=== PATIENT | male | born 1965 | race African-American/Black ===

== ENCOUNTER 2019-10-30 15:30 | Emergency (ER) | payer SELFPAY ==
[2019-10-30] MEDS ORDERED: NORMAL SALINE 1000 ML 1,000 ML IV ONE ×2 (16:12→18:20)
--- NOTE | 2019-10-30 16:14 | ER Document Report ---
ED Medical Screen (RME) - General Chief Complaint: High Blood Sugar Stated Complaint: ABNORMAL LAB - DR REFERRED Time Seen by Provider: 10/30/19 16:04 Mode of Arrival: Ambulatory Information source: Patient Notes: Patient is a 54-year-old male presenting to the emergency department from the urgent care with concerns for elevated blood glucose. Patient reports he is perfectly healthy, has no history of hypertension, diabetes and does not take any medications daily. Patient reports the urgent care told him his glucose was elevated and he had an A1c of 13. Patient reports excessive thirst and frequent urination lately. Denies any nausea, vomiting or diarrhea. Patient appears well, nontoxic is alert, oriented and interactive. I have greeted and performed a rapid initial assessment of this patient. A comprehensive ED assessment and evaluation of the patient, analysis of test results and completion of the medical decision making process will be conducted by additional ED providers. I have specifically instructed the patient or family members with the patient to immediately return to any nursing staff should anything change in the patient's condition or with their chief complaint. TRAVEL OUTSIDE OF THE [place] IN LAST 30 DAYS: No - Related Data Allergies/Adverse Reactions: pollen extracts Allergy (Verified 10/30/19 15:51) Past Medical History - Social History Frequency of alcohol use: None Drug Abuse: None Physical Exam - Vital signs Vitals: Temp Pulse Resp BP Pulse Ox 98.1 F 117 H 18 175/93 H 96 10/30/19 15:35 10/30/19 15:35 10/30/19 15:35 10/30/19 15:35 10/30/19 15:35 Course - Vital Signs Vital signs: Temp Pulse Resp BP Pulse Ox 98.1 F 117 H 18 175/93 H 96 10/30/19 15:35 10/30/19 15:35 10/30/19 15:35 10/30/19 15:35 10/30/19 15:35
--- NOTE | 2019-10-30 16:44 | RADIOLOGY REPORT (SQ) ---
EXAM DESCRIPTION: CHEST 2 VIEWS COMPLETED DATE/TIME: 10/30/2019 4:33 pm REASON FOR STUDY: eval for chf COMPARISON: None. EXAM PARAMETERS: NUMBER OF VIEWS: two views TECHNIQUE: Digital Frontal and Lateral radiographic views of the chest acquired. RADIATION DOSE: NA LIMITATIONS: none FINDINGS: LUNGS AND PLEURA: No opacities, masses or pneumothorax. No pleural effusion. MEDIASTINUM AND HILAR STRUCTURES: No masses or contour abnormalities. HEART AND VASCULAR STRUCTURES: Cardiac enlargement. No failure. BONES: No acute findings. HARDWARE: None in the chest. OTHER: No other significant finding. IMPRESSION: NO ACUTE RADIOGRAPHIC FINDING IN THE CHEST. TECHNICAL DOCUMENTATION: JOB ID: [id number] 2010 [employer]- All Rights Reserved Reading location - IP/workstation name: [email or web address]
[2019-10-30 17:10] LABS: ABSOLUTE BASOPHILS # (AUTO) 0.1 10^3/uL (0.0-0.2); ABSOLUTE EOSINOPHILS # (AUTO) 0.3 10^3/uL (0.0-0.6); ABSOLUTE LYMPHOCYTES (AUTO) 2.6 10^3/uL (0.5-4.7); ABSOLUTE MONOCYTES (AUTO) 0.7 10^3/uL (0.1-1.4); BASOPHILS % (AUTO) 0.6 % (0-2); EOSINOPHILS % (AUTO) 2.9 % (0-6); HEMATOCRIT 41.2 % (37.9-51.0); HEMOGLOBIN 14.3 g/dL (13.5-17.0); LYMPHOCYTES % (AUTO) 27.2 % (13-45); MEAN CORPUSCULAR HEMOGLOBIN 26.6 pg (27.0-33.4); MEAN CORPUSCULAR HGB CONC 34.7 g/dL (32.0-36.0); MEAN CORPUSCULAR VOLUME 77 fl (80-97); MONOCYTES % (AUTO) 6.8 % (3-13); PLATELET COUNT 224 10^3/uL (150-450); RED BLOOD COUNT 5.37 10^6/uL (4.35-5.55); RED CELL DISTRIBUTION WIDTH 16.1 % (11.5-14.0); SEGMENTED NEUTROPHILS % (AUTO) 62.5 % (42-78); TOTAL CELLS COUNTED % (AUTO) 100 %; WHITE BLOOD COUNT 9.6 10^3/uL (4.0-10.5)
[2019-10-30 17:27] LABS: ALBUMIN 3.3 g/dL (3.5-5.0); ALKALINE PHOSPHATASE 147 U/L (38-126); ANION GAP 11 (5-19); ASPARTATE AMINO TRANSFERASE 26 U/L (17-59); BILIRUBIN,DIRECT 0.3 mg/dL (0.0-0.4); BILIRUBIN,TOTAL 0.6 mg/dL (0.2-1.3); BLOOD UREA NITROGEN 18 mg/dL (7-20); CALCIUM 8.9 mg/dL (8.4-10.2); CARBON DIOXIDE 23 mmol/L (22-30); CHLORIDE 97 mmol/L (98-107); POTASSIUM 4.4 mmol/L (3.6-5.0); TOTAL PROTEIN 6.6 g/dL (6.3-8.2)
[2019-10-30 17:35] LABS: GLUCOSE 448 mg/dL (75-110)
[2019-10-30 18:37] LABS: APPEARANCE,URINE SLIGHTLY-CLOUDY; BILIRUBIN,URINE NEGATIVE (NEGATIVE); COLOR,URINE STRAW; GLUCOSE, URINE >=500 mg/dL (NEGATIVE); KETONES,URINE 20 mg/dL (NEGATIVE); LEUKOCYTE ESTERASE,URINE MODERATE (NEGATIVE); NITRITE,URINE NEGATIVE (NEGATIVE); PROTEIN,URINE NEGATIVE (NEGATIVE); URINE SPECIFIC GRAVITY 1.021; UROBILINOGEN,URINE NEGATIVE mg/dL (<2.0)
[2019-10-30] MEDS ORDERED: CEFTRIAXONE 1 GM/D5W RTU 1 GM/50 ML RTUPB IV ONE (18:52)
--- NOTE | 2019-10-30 19:42 | ER Document Report ---
ED Blood Sugar Problem - General Chief Complaint: High Blood Sugar Stated Complaint: ABNORMAL LAB - DR REFERRED Time Seen by Provider: 10/30/19 16:04 Mode of Arrival: Ambulatory Notes: HPI: Patient is a 54-year-old male with no real past medical history who states around 2 weeks ago he started to have some increased urination. He has vomited one time on 4 days ago. He denies any lightheadedness, dizziness, chest pain, ortega pain, focal weakness or numbness. He went to his primary care physician's office today and they noted a very elevated blood sugar as well as a hemoglobin A1c. They sent him here for further evaluation. ROS: See HPI All other review of systems reviewed and otherwise negative Reviewed vital signs and nursing note as charted by RN. PHYSICAL EXAM: CONSTITUTIONAL: Alert and oriented and responds appropriately to questions. Well-appearing; well-nourished HEAD: Normocephalic; atraumatic EYES: PERRL; Conjunctivae clear, sclerae non-icteric CARD: Regular rate and rhythm; no murmurs; symmetric distal pulses RESP: Normal chest excursion without splinting or tachypnea; breath sounds clear and equal bilaterally; no wheezes, no rhonchi, no rales ABD/GI: Normal bowel sounds; non-distended; soft, non-tender; no palpable organomegaly or masses BACK: The back appears normal and is non-tender to palpation EXT: Normal ROM in all joints; non-tender to palpation; no edema SKIN: No acute lesions noted NEURO: CN 2-12 intact; 5/5 bilateral upper and lower extremity strength with sensation intact to light touch PSYCH: The patient's mood and manner are appropriate. Grooming and personal hygiene are appropriate. TRAVEL OUTSIDE OF THE [place] IN LAST 30 DAYS: No - Related Data Allergies/Adverse Reactions: pollen extracts Allergy (Verified 10/30/19 15:51) Past Medical History - General Information source: Patient - Social History Smoking Status: Former Smoker Frequency of alcohol use: None Drug Abuse: None Family History: Reviewed & Not Pertinent Patient has suicidal ideation: No Patient has homicidal ideation: No Physical Exam - Vital signs Vitals: Temp Pulse Resp BP Pulse Ox 98.1 F 117 H 18 175/93 H 96 10/30/19 15:35 10/30/19 15:35 10/30/19 15:35 10/30/19 15:35 10/30/19 15:35 Course - Re-evaluation Re-evalutation: Given the above history and physical we will place the patient on the monitor and obtain basic labs and electrolytes and evaluate the patient's anion gap and CO2 levels. 10/30/19 19:41 Blood sugar as recorded. Anion gap as recorded. 2 L of fluid have been started with every hour Accu-Cheks. Patient's urine analysis as recorded. He denies any dysuria, abdominal pain, fevers, or flank pain. I have provided a gram of Rocephin have ordered a urine culture. We will recheck the patient's Accu-Chek after fluid has been provided. - Vital Signs Vital signs: Temp Pulse Resp BP Pulse Ox 98.1 F 100 15 143/93 H 96 10/30/19 21:25 10/30/19 21:25 10/30/19 21:25 10/30/19 21:25 10/30/19 21:25 - Laboratory Result Diagrams: 10/30/19 16:55 10/30/19 16:55 Laboratory results interpreted by me: 10/30/19 10/30/19 10/30/19 16:54 16:55 16:55 MCV 77 L MCH 26.6 L RDW 16.1 H Sodium 131.0 L Chloride 97 L Creatinine 1.28 H Est GFR (MDRD) Non-Af 59 L Glucose 448 H* POC Glucose 424 H* Alkaline Phosphatase 147 H Albumin 3.3 L Urine Glucose (UA) Urine Ketones Ur Leukocyte Esterase 10/30/19 10/30/19 17:55 20:43 MCV MCH RDW Sodium Chloride Creatinine Est GFR (MDRD) Non-Af Glucose POC Glucose 314 H Alkaline Phosphatase Albumin Urine Glucose (UA) >=500 H Urine Ketones 20 H Ur Leukocyte Esterase MODERATE H Discharge - Discharge Clinical Impression: Hyperglycemia Condition: Good Disposition: HOME, SELF-CARE Additional Instructions: Come back immediately for any fevers, vomiting, weakness or numbness, or any other acute problems. Please make sure that she go to the [facility] pharmacy as we have discussed on [facility] for the glucometer and the test strips and take the antibiotics as prescribed. Prescriptions: Metformin HCl [Glucophage 500 mg Tablet] 500 mg PO BID #60 tablet Cephalexin Monohydrate [Keflex 500 mg Capsule] 500 mg PO TID #21 capsule
[2019-10-30] MEDS ORDERED: METFORMIN HCL 500 MG TABLET PO ONE (20:53)
[2019-10-30 21:27] VITALS: BP 143/93
== END 2019-10-30 21:29 | disposition home or self-care (01) ==
LOC: ER 15:30
DX: R73.9 Hyperglycemia, unspecified (principal); R35.0 Frequency of micturition; R11.10 Vomiting, unspecified; Z87.891 Personal history of nicotine dependence
CPT/HCPCS: 99285; 96361; 96365; 36415; 87086; 82962; 85025; 80053; 81001; 71046; J7030; J0696